=== PATIENT | male | born 1965 ===

== ENCOUNTER 2017-08-13 01:40 | Emergency (ER) | payer SELFPAY ==
[2017-08-13 03:58] LABS: Hematocrit 41 % (42-52); Mean Corpuscular HGB Conc 35 g/dl (31-36); Mean Corpuscular Hemoglobin 34 pg (27-31); Mean Corpuscular Volume 98 fL (80-94); Mean Platelet Volume 8 um3 (7.4-10.4); Red Blood Count 4.14 10^6/ul (4.0-5.4); Red Cell Distribution Width 13 % (10.5-15); White Blood Count 8.1 10^3/ul (3.5-10.8)
[2017-08-13] MEDS ORDERED: oxyCODONE/Acetamin 5/325 MG* TAB PO ONE (04:10)
[2017-08-13 04:13] LABS: ALT 9 U/L (7-52); Albumin 3.9 g/dL (3.2-5.2); Alkaline Phosphatase 51 U/L (34-104); BUN/Creatinine Ratio 24.1 (8-20); Blood Urea Nitrogen 21 mg/dL (6-24); CO2 Carbon Dioxide 24 mmol/L (22-32); Calcium 8.8 mg/dL (8.6-10.3); Chloride 105 mmol/L (101-111); EGFR African American 118.5 (>60); EGFR Non-African American 92.1 (>60); Globulin 2.3 g/dL (2-4); Glucose 195 mg/dL (70-100); Sodium 134 mmol/L (133-145); Total Protein 6.2 g/dL (6.4-8.9)
[2017-08-13 04:22] LABS: Anion Gap 5 mmol/L (2-11)
[2017-08-13 04:51] LABS: Erythrocyte Sed Rate 6 mm/Hr (0-20)
--- NOTE | 2017-08-13 05:02 | ED ---
Keshawn Lassiter Stephanie, scribed for Clarence Kc MD on 08/13/17 at 0427 . Lower Extremity - HPI Summary HPI Summary: Pt is a 52 y/o M with c/o R leg pain. HPI is limited due to broken Romanian ( nulato Belgian speaker). He states his pain began 1 week ago. He reports taking pain medications and self-injected pain medication. Symptoms include sleep disturbances for 3 days. Aggravating factors include walking and standing. Alleviating factors include rest. - History of Current Complaint Chief Complaint: EDBackInjuryPain Stated Complaint: SCIATICA Hx Obtained From: Patient Onset of Pain: Days - 14 Onset/Duration: Still Present Pain Intensity: 10 Pain Scale Used: 0-10 Numeric Timing: Constant Aggravating Factor(s): Ambulation, Movement Alleviating Factor(s): Rest - Allergies/Home Medications Allergies/Adverse Reactions: Allergies Allergy/AdvReac Type Severity Reaction Status Date / Time No Known Allergies Allergy Verified 08/13/17 01:51 PMH/Surg Hx/FS Hx/Imm Hx Sensory History: Denies: Hx Deafness Opthamlomology History: Denies: Hx Legally Blind EENT History: Denies: Hx Deafness Infectious Disease History: No Infectious Disease History: Denies: Traveled Outside the [place] in Last 30 Days - Social History Alcohol Use: None Substance Use Type: Reports: None Smoking Status (MU): Unknown if Ever Smoked Review of Systems Negative: Fever Positive: Other - sciatica back pain All Other Systems Reviewed And Are Negative: Yes Physical Exam - Summary Physical Exam Summary: Appearance: Well-appearing, Well-nourished Skin: Warm, Dry, No rash Eyes: Normal, PERRL, EOMI, sclera anicteric ENT: Normal Neck: Supple, nontender Respiratory: Clear to auscultation Cardiovascular: S1, S2, no murmur, no rub, no gallop Abdomen: Soft, nontender, no organomegaly Bowel sounds: Present Musculoskeletal: Strength/ROM Intact, no edema, pulses symmetrical. Weak R quadriceps. Depressed R quadriceps reflex. Nml heal and toe walking. Positive R straight leg raising. No perineal anesthesia. Neurological: Normal, A&Ox3, cranial nerves II-XII WNL, follows commands, gait not tested, sensation intact to pin and light touch Psychiatric: affect normal, behavior appropriate, dressed appropriately, judgment intact Triage Information Reviewed: Yes Vital Signs On Initial Exam: Initial Vitals Temp Pulse Resp BP Pulse Ox 98.3 F 76 16 133/69 100 08/13/17 01:52 08/13/17 01:52 08/13/17 01:52 08/13/17 01:52 08/13/17 01:52 Vital Signs Reviewed: Yes - Patrick Coma Scale Coma Scale Total: 15 Diagnostics - Vital Signs Vital Signs Temp Pulse Resp BP Pulse Ox 08/13/17 01:52 98.3 F 76 16 133/69 100 - Laboratory Lab Results: Lab Results 08/13/17 Range/Units 03:48 WBC 8.1 (3.5-10.8) 10^3/ul RBC 4.14 (4.0-5.4) 10^6/ul Hgb 14.0 (14.0-18.0) g/dl Hct 41 L (42-52) % MCV 98 H (80-94) fL MCH 34 H (27-31) pg MCHC 35 (31-36) g/dl RDW 13 (10.5-15) % Plt Count 184 (150-450) 10^3/ul MPV 8 (7.4-10.4) um3 Neut % (Auto) 81.2 (38-83) % Lymph % (Auto) 9.5 L (25-47) % Payne % (Auto) 8.9 (1-9) % Eos % (Auto) 0 (0-6) % Baso % (Auto) 0.4 (0-2) % Absolute Neuts (auto) 6.5 (1.5-7.7) 10^3/ul Absolute Lymphs (auto) 0.8 L (1.0-4.8) 10^3/ul Absolute Monos (auto) 0.7 (0-0.8) 10^3/ul Absolute Eos (auto) 0 (0-0.6) 10^3/ul Absolute Basos (auto) 0 (0-0.2) 10^3/ul Absolute Nucleated RBC 0.01 10^3/ul Nucleated RBC % 0.1 ESR Pending Result Diagrams: 08/13/17 03:48 08/13/17 03:48 Lab Statement: Any lab studies that have been ordered have been reviewed, and results considered in the medical decision making process. Lower Extremity Course/Dx - Course Course Of Treatment: Labs were normal. ED physician ordered oxycodone and Percocet. Pt will be discharged. ED physician has discussed course with pt and pt agrees. ED physician advises pt to return to the ED if symptoms worsen. - Diagnoses Provider Diagnoses: Herniated intervertebral disc Discharge - Discharge Plan Condition: Fair Disposition: HOME Prescriptions: oxyCODONE/Acetamin 5/325 MG* [Percocet 5/325 TAB*] 1 tab PO Q6H PRN 5 Days #20 tab MDD 4 PRN Reason: Pain Patient Education Materials: Lumbar Disc Herniation (ED) Referrals: No Primary Care Phys,NOPCP [Primary Care Provider] - Additional Instructions: bedrest, analgesics, physical therapy, MRI to evaluate for herniated disc The documentation as recorded by the Keshawn godoy Stephanie accurately reflects the service I personally performed and the decisions made by , Clarence Kc MD.
[2017-08-13 05:08] VITALS: BP 128/72
== END 2017-08-13 05:08 | disposition home or self-care (01) ==
LOC: EDBD → ED 01:40
DX: M51.26 Other intervertebral disc displacement, lumbar region (principal)
CPT/HCPCS: 36415; 80053; 85025; 85652; 99282